=== PATIENT | male | born 1955 | race Two or more races ===

== ENCOUNTER 2017-05-03 19:25 | Emergency (ER) | payer OTHER ==
[~2017-05-03] VITALS: Ht 172.7 cm; Wt 88.9 kg
[~2017-05-03 19:25] MED LIST: CYCLOBENZAPRINE10 MG ORAL; IBUPROFEN600 MG ORAL; NKM; NORCO 5-325 TA1 EACH ORAL
[2017-05-03] MEDS ORDERED: Rabies Vaccine IM ONE ×2 (20:00→20:21)
[2017-05-03] MEDS ORDERED: Tetanus/Diptheria/Pertussis Vaccine 0.5ml Syr IM ONE (20:00)
[2017-05-03] MEDS ORDERED: AUGMENTIN 875-1 EAC1 ORAL (20:12)
[2017-05-03 20:43] VITALS: BP 147/65
--- NOTE | 2017-05-03 20:48 | Emergency Room Report ---
History of Present Illness General Chief Complaint: Animal Bite Source: Patient Present Illness HPI 61-year-old male, here for dog bite. States that a bulldog bit him on the right ankle, it was a homeless man's dog. dog's Vaccinations are not up-to- date. Unable to quarantined out. Tetanus is not up-to-date Allergies: Coded Allergies: No Known Allergies (Unverified , 05/03/17) Patient History Past Medical History: see triage record Past Surgical History: none Pertinent Family History: none Reviewed Nursing Documentation: PMH: Agreed, PSxH: Agreed Nursing Documentation-PMH Past Medical History: No Stated History Review of Systems All Other Systems: negative except mentioned in HPI Physical Exam Vital Signs Date Time Temp Pulse Resp B/P (MAP) Pulse Ox O2 Delivery O2 Flow Rate FiO2 05/03/17 19:32 98.0 74 16 134/75 95 Room Air 98.1 Sp02 EP Interpretation: reviewed, normal General Appearance: normal inspection, well appearing, no apparent distress, alert, GCS 15, non-toxic Head: normocephalic, atraumatic Eyes: bilateral eye normal inspection, bilateral eye PERRL, bilateral eye EOMI ENT: normal ENT inspection, normal pharynx, normal voice, moist mucus membranes Neck: normal inspection, full range of motion, supple Respiratory: normal inspection, lungs clear, normal breath sounds, no respiratory distress, no retraction, no wheezing, speaking full sentences, chest symmetrical Cardiovascular #1: normal inspection, regular rate, rhythm, no edema, normal capillary refill Cardiovascular #2: 2+ radial (R), 2+ radial (L) Gastrointestinal: normal inspection, non tender, soft, non-distended, no guarding Genitourinary: no CVA tenderness Musculoskeletal: other - Dog bite noted to right ankle Neurologic: normal inspection, alert, oriented x3, responsive, motor strength/ tone normal, sensory intact, normal gait, speech normal Psychiatric: normal inspection, judgement/insight normal, memory normal Skin: normal inspection, normal color, no rash, warm/dry, well hydrated, normal turgor Medical Decision Making Diagnostic Impression: Primary Impression: Rabies, need for prophylactic vaccination against Additional Impression: Dog bite of ankle ER Course 61-year-old male with right ankle dog bite DDX: Dog bite requiring rabies prophylaxis Plan: Rabies prophylaxis and tetanus ER course: Patient has remained stable during ED stay. Disposition: Patient is to be discharged to home with augmentin Instructed to follow-up with either the emergency room or primary care doctor's office for vaccinations four Day 3,7, and 14 Please note that this Emergency Department Report was dictated using [employer] technology software, occasionally this can lead to erroneous entry secondary to interpretation by the dictation equipment Last Vital Signs Date Time Temp Pulse Resp B/P (MAP) Pulse Ox O2 Delivery O2 Flow Rate FiO2 05/03/17 20:43 98.1 70 17 147/65 96 Room Air 98.1 Disposition: HOME, SELF-CARE Condition: Improved Scripts Amoxicillin/Potassium Clav 875-125* (AUGMENTIN 875-125 TABLET*) 1 Each Tablet 1 TAB ORAL TWICE A DAY for 7 Days, #14 TAB Prov: Davey Encarnacion M.D. 05/03/17 Referrals: [facility],REFERRING (PCP) Patient Instructions: Animal Bite, Rabies Vaccine suspension for injection Additional Instructions: PLEASE RETURN TO THE ER OR YOUR DOCTORS OFFICE TO RECEIVE RABIES VACCINATION ON DAY 3, 7 AND 14 Davey Encarnacion M.D. May 03, 2017 20:48
[2017-05-03] MEDS ORDERED: RABIES VACCINE IM ONE (21:00)
[2017-05-03 21:06] VITALS: BP 147/65
== END 2017-05-03 21:09 | disposition home or self-care (01) ==
LOC: EMR 20:20
DX: S91.051A Open bite, right ankle, initial encounter (principal); Z23 Encounter for immunization; W54.0XXA Bitten by dog, initial encounter; Y92.9 Unspecified place or not applicable
CPT/HCPCS: 90375; 90471; 90715; 96372; 99283; G0009

== ENCOUNTER 2017-05-10 21:11 | Emergency (ER) | payer OTHER ==
[~2017-05-10] VITALS: Ht 177.8 cm; Wt 86.2 kg
[~2017-05-10 21:11] MED LIST changes: +AUGMENTIN 875-1 EAC1 ORAL
[2017-05-10] MEDS ORDERED: Rabies Vaccine IM ONE (21:45)
[2017-05-10] MEDS ORDERED: Bacitracin Oint UD TOPIC ONE (21:45)
--- NOTE | 2017-05-10 22:18 | Emergency Room Report ---
History of Present Illness General Chief Complaint: General Complaint Source: Patient Present Illness [facility] Patient returns to get second rabies vaccination after a dog bite 05/04. He did not fill the Augmentin. He reports swelling and some tingling at the site. Also there is some redness. There is still pain there 06/29. Not taking any medication for this. No antibiotic ointment used. No fevers. No NVD, headaches, calf tenderness, URI sy, chest pain, dyspnea. 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 Nursing Documentation: PMH: Agreed; PSxH: Agreed Nursing Documentation-PMH Past Medical History: No Stated History Review of Systems All Other Systems: negative except mentioned in HPI Physical Exam Vital Signs Date Time Temp Pulse Resp B/P (MAP) Pulse Ox O2 Delivery O2 Flow Rate FiO2 05/10/17 21:24 98.2 74 18 118/76 98 Room Air 98.2 Sp02 EP Interpretation: reviewed, normal General Appearance: well appearing, no apparent distress Head: normocephalic, atraumatic Eyes: bilateral eye normal inspection ENT: hearing grossly normal, normal voice, moist mucus membranes Neck: full range of motion, supple Respiratory: no respiratory distress, speaking full sentences Cardiovascular #1: regular rate, rhythm Cardiovascular #2: 2+ radial (L), 2+ dorsalis pedis (R) Gastrointestinal: normal inspection Musculoskeletal: normal range of motion, no calf tenderness, inflammation - R ankle, swelling Neurologic: alert, normal gait, grossly normal Psychiatric: mood/affect normal Skin: other - bite R ankle anterior, min erythema, no pus Medical Decision Making Diagnostic Impression: Primary Impression: Dog bite of ankle Qualified Codes: S91.051D - Open bite, right ankle, subsequent encounter; W54.0XXD - Bitten by dog, subsequent encounter Additional Impression: Alleged need for rabies vaccination ER Course Patient re-presents for rabies vaccination and is non-compliant with antibiotics. DDx; cellulitis, inflammation, non-compliance amongst others. Doubt risk for rabies, but risk of vaccination small. Needs antibiotics and analgesics. Patient stable for outpatient observation and treatment. Last Vital Signs Date Time Temp Pulse Resp B/P (MAP) Pulse Ox O2 Delivery O2 Flow Rate FiO2 05/10/17 22:45 98.2 71 18 120/74 98 Room Air 98.2 Status: improved Disposition: HOME, SELF-CARE Condition: Improved Scripts Bacitracin (Bacitracin) 28.4 Gm Oint...g. 1 APPLIC TOPIC BID, #14 GM Prov: Darnell Trujillo M.D. 05/10/17 Darnell Trujillo M.D. May 10, 2017 22:18
[2017-05-10] MEDS ORDERED: BACITRACIN15 GM TOPIC (22:22)
[2017-05-10 22:45] VITALS: BP 120/74
== END 2017-05-10 22:33 | disposition home or self-care (01) ==
LOC: EMR 21:39
DX: Z23 Encounter for immunization (principal); S91.051D Open bite, right ankle, subsequent encounter; W54.0XXD Bitten by dog, subsequent encounter; R05 Cough; M47.812 Spondylosis without myelopathy or radiculopathy, cervical region
CPT/HCPCS: 90375; 96372; 99283; G0009

== ENCOUNTER 2020-04-15 17:06 | Emergency (ER) | payer SELFPAY ==
[~2020-04-15] VITALS: Ht 175.3 cm; Wt 95.3 kg
[~2020-04-15 17:06] MED LIST changes: +BACITRACIN15 GM TOPIC
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
[2020-04-15] MEDS ORDERED: Tetanus/Diptheria/Pertussis IM ONE (17:15)
[2020-04-15] MEDS ORDERED: Ketorolac 30mg Inj IV ONE (17:15)
[2020-04-15] MEDS ORDERED: Bacitracin Oint UD TOPIC ONE (17:15)
[2020-04-15] MEDS ORDERED: oxyCODONE HCL/Acetaminophen 5/325mg ORAL ONE (17:15)
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
[2020-04-15 17:54] VITALS: BP 163/91
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
[2020-04-15] MEDS ORDERED: CYCLOBENZAPRINE10 MG ORAL (18:04)
[2020-04-15] MEDS ORDERED: BACITRACIN15 GM TOPIC (18:04)
[2020-04-15] MEDS ORDERED: IBUPROFEN600 M1 ORAL (18:04)
[2020-04-15] MEDS ORDERED: HYDROCODON-ACE1 EA18 PO (18:04)
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
[2020-04-15 19:00] VITALS: BP 163/91
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
--- NOTE | 2020-04-16 19:17 | Cardiology Report ---
APPROVED REPORT EKG Measurement Heart [id number] <Conclusion> Normal sinus rhythm Cannot rule out Anterior infarct, age undetermined Abnormal ECG
== END 2020-04-15 19:00 | disposition home or self-care (01) ==
LOC: EDBD 17:06 → EMR 17:28
DX: S16.1XXA Strain of muscle, fascia and tendon at neck level, initial encounter (principal); S39.012A Strain of muscle, fascia and tendon of lower back, initial encounter; S60.212A Contusion of left wrist, initial encounter; V43.52XA Car driver injured in collision with other type car in traffic accident, initial encounter; Y92.411 Interstate highway as the place of occurrence of the external cause; Z87.891 Personal history of nicotine dependence
CPT/HCPCS: 72125; 72131; 73110; 90471; 90715; 93005; 96372; 96374; 99284; J1885